=== PATIENT | female | born 1995 | race Caucasian/White ===

== ENCOUNTER 2025-01-05 04:44 | Inpatient (IN) | payer OTHER, SELFPAY ==
[2025-01-05 04:59] VITALS: BP 138/81; BMI 30.9
[2025-01-05 06:02] LABS: Hematocrit 30.6 % (37.0-47.0); Hemoglobin 10.0 g/dL (12.0-16.0); Mean Corp Hgb Conc. 32.7 g/dL (33.0-37.0); Mean Corpuscular Volume 76.3 fL (81.0-99.0); Nucleated Red Blood Cells % 0.2 %; Platelet Count 296 10^3/uL (130-400); Red Cell Dist. Width 15.3 % (11.5-14.5)
[2025-01-05] MEDS: LR 1000 IV (06:24)
[2025-01-05] MEDS: STADOL 1 MG IV (07:00)
[2025-01-05 07:59] LABS: Glucose - Point of Care 82 mg/dl (70-99)
[2025-01-05] MEDS: SUBLIMAZE 100 MCG EPIDURAL (08:20)
[2025-01-05] MEDS: FENTANYL/BUPIVACAINE 100 EPIDURAL (08:20)
[2025-01-05] MEDS: PITOCIN 30 UNITS/NSS 500 ML IV ×2 (11:45→15:26)
[2025-01-05] MEDS: COLACE 100 MG PO (19:48)
[2025-01-05] MEDS: MOTRIN 600 MG PO (19:59)
[2025-01-06] MEDS: MOTRIN 600 MG PO ×2 (03:03→13:17)
[2025-01-06 05:05] LABS: Hematocrit 26.4 % (37.0-47.0); Hemoglobin 8.7 g/dL (12.0-16.0)
[2025-01-06] MEDS: PRENATAL PLUS 1 TABLET PO (08:10)
[2025-01-06] MEDS: COLACE 100 MG PO (08:10)
[2025-01-06] MEDS: TYLENOL 650 MG PO (08:21)
[2025-01-06] MEDS: FEOSOL 325 MG PO (13:17)
[2025-01-07 12:51] LABS: Syphilis/T. pallidum Ab Reflex Negative (Negative)
== END 2025-01-06 16:36 | disposition home or self-care (01) | DRG 807 ==
LOC: LDRP 04:44
PROVIDERS: Student in an Organized Health Care Education/Training Program; ADMITTING PHYSICIAN Obstetrics & Gynecology
PROC: 0HQ9XZZ Repair Perineum Skin, External Approach (ICD-10-PCS; 2025-01-05)
PROC: 10E0XZZ Delivery of Products of Conception, External Approach (ICD-10-PCS; 2025-01-05)
DX: O69.81X0 Labor and delivery complicated by cord around neck, without compression, not applicable or unspecified (principal); Z37.0 Single live birth; Z3A.39 39 weeks gestation of pregnancy; O70.0 First degree perineal laceration during delivery
CPT/HCPCS: 82962; 85014; 85018; 85025; 86780; 86850; 86900; 86901; 99406